=== PATIENT | female | born 1990 | race American Indian/Alaskan Native ===

== ENCOUNTER 2018-07-18 08:58 | Emergency (ER) | payer MEDICAID ==
[2018-07-18 08:58] VITALS: BMI 27.6
[2018-07-18 09:09] VITALS: BP 135/85; PULSE 70; RESP 18; TEMP 98.8; O2SAT 99
--- NOTE | 2018-07-18 09:26 | C.PDOC ---
History Of Present Illness 28 year old female with history of dental issues presents to ED complaining of right upper mouth pain for x2 days. Patient reports taking 800 mg Ibuprofen with no relief half hour prior to arrival. Patient states she tried going to the dentist today but the office was closed due to an emergency. Denies weakness, chills, nausea, vomiting, weakness, numbness. Time Seen by Provider: 07/18/18 09:08 Chief Complaint (Nursing): Dental Pain History Per: Patient History/Exam Limitations: no limitations Onset/Duration Of Symptoms: Days Current Symptoms Are (Timing): Still Present Past Medical History Reviewed: Historical Data, Nursing Documentation, Vital Signs Vital Signs: Last Vital Signs Temp 98.8 F 07/18/18 09:04 Pulse 70 07/18/18 09:04 Resp 18 07/18/18 09:04 BP 135/85 07/18/18 09:04 Pulse Ox 99 07/18/18 09:04 - Medical History PMH: Denies: Depression Surgical History: No Surg Hx - [facility] Procedures INJECT/INFUSE NEC (04/08/13) Family History: States: No Known Family Hx - Social History Hx Tobacco Use: No Hx Alcohol Use: No Hx Substance Use: No - Immunization History Hx Tetanus Toxoid Vaccination: No Hx Influenza Vaccination: No Hx Pneumococcal Vaccination: No Review Of Systems Constitutional: Negative for: Fever, Chills ENT: Positive for: Mouth Pain (Right upper mouth pain.) Cardiovascular: Negative for: Chest Pain Respiratory: Negative for: Cough, Shortness of Breath Gastrointestinal: Negative for: Nausea, Vomiting, Diarrhea Neurological: Negative for: Weakness, Numbness Physical Exam - Physical Exam Appears: Non-toxic, Other (In apparent distress.) Skin: Warm, Dry, No Rash Head: Atraumatic, Normacephalic Eye(s): bilateral: PERRL, EOMI Oral Mucosa: Moist Tongue: Normal Appearing Lips: Normal Appearing Teeth: Caries (1st and and 2nd posteriormolar on the right upper side of the mouth.), Tender To Palpation (1st and 2nd most posterior molar on the right upper side of the mouth.), Other (Third molar is from the right upper side of mouth is broken, small piece of tooth remain in gum) Gingiva: Swelling (Mild), Tender (to touch) Neck: Supple Neurological/Psych: Oriented x3, Normal Speech, Normal Cognition ED Course And Treatment O2 Sat by Pulse Oximetry: 99 (RA) Pulse Ox Interpretation: Normal Medical Decision Making Medical Decision Making: Plan: * test * Penicillin tylenol and one percocet 0950 pt's roguer reviwed; pt filled rx for 110 oxycodone/acetaminophen 10 mg on 07/13, advised no further narcotics would be prescribed. Disposition Counseled Patient/Family Regarding: Diagnosis, Need For Followup, Rx Given - Disposition Disposition: HOME/ ROUTINE Disposition Time: 09:56 Condition: IMPROVED Additional Instructions: Please use cold compress to right side face over cloth several times a day for pain. Get over the counter Anbesol and use as directed. Take Ibuprofen 800 mg by mouth every 8 hours with food. Take Percocet you already have at home as prescribed. Take antibiotics as prescribed. Follow up with dentist as soon as possible. Prescriptions: Penicillin VK [Penicillin VK Tab] 500 mg PO TID #21 tab Instructions: Tooth Decay, Adult (DC), Dental Pain (DC) Forms: [facility] (Italian), General Discharge Instructions - Clinical Impression Clinical Impression: Dental caries, Pain, dental - PA / [employer] / Resident Statement MD/DO has reviewed & agrees with the documentation as recorded. - Scribe Statement The provider has reviewed the documentation as recorded by the Scribe Dominic Mckoy All medical record entries made by the Ashley were at my direction and personally dictated by me. I have reviewed the chart and agree that the record accurately reflects my personal performance of the history, physical exam, medical decision making, and the department course for this patient. I have also personally directed, reviewed, and agree with the discharge instructions and disposition.
[2018-07-18] MEDS ORDERED: Oxycodone/Acetaminophen 5/325 mg Tab PO STA (09:42)
[2018-07-18] MEDS ORDERED: Oxycodone/Acetaminophen 5/325 mg Tab ONE (09:48)
== END 2018-07-18 10:05 | disposition home or self-care (01) ==
LOC: C.ER 08:58
DX: K02.9 Dental caries, unspecified (principal)